=== PATIENT | female | born 1960 | race African-American/Black ===

== ENCOUNTER 2017-03-31 12:27 | Emergency (ER) | payer OTHER ==
[~2017-03-31] VITALS: Ht 170.2 cm; Wt 74.8 kg
[2017-03-31] MEDS ORDERED: LEVOTHYROXIN0.137 M1 PO (12:37)
[2017-03-31 13:00] LABS: HEMATOCRIT 31.8 % (37.0-47.0); HEMOGLOBIN 10.6 gm/dL (12.0-15.0); MCH 29.8 pg (26.0-34.0); MCHC 33.2 g/dL (28.0-37.0); MCV 89.6 fL (80.0-100.0); PLATELET COUNT 275 thou/uL (150-400); RBC 3.55 mil/uL (4.20-5.00); RDW 14.8 % (10.5-14.5); WBC 10.3 thou/uL (4.0-11.0)
[2017-03-31 13:01] LABS: MANUAL DIFF YES
[2017-03-31 13:13] LABS: ANION GAP 11 mmol/L (7-16); BUN 10 mg/dL (7-18); CALCIUM 8.3 mg/dL (8.5-10.1); CHLORIDE 106 mmol/L (98-107); CO2 24 mmol/L (21-32); CREATININE 0.7 mg/dL (0.6-1.0); GLUCOSE 98 mg/dL (74-106); SODIUM 141 mmol/L (136-145)
[2017-03-31 13:17] LABS: ALBUMIN 3.9 g/dL (3.4-5.0); ALKALINE PHOSPHATASE 59 U/L (46-116); DIRECT BILIRUBIN < 0.1 mg/dL (<0.1-0.3); SGOT 24 U/L (15-37); SGPT 25 U/L (30-65); TOTAL BILIRUBIN 0.3 mg/dL (<0.1-1.0); TOTAL PROTEIN 7.5 g/dL (6.4-8.2)
[2017-03-31 13:18] LABS: URINE BILIRUBIN NEGATIVE (Negative); URINE BLOOD NEGATIVE (Negative); URINE COLOR ORANGE; URINE GLUCOSE-RANDOM* NEGATIVE (Negative); URINE KETONES NEGATIVE (Negative); URINE NITRITE NEGATIVE (Negative); URINE PROTEIN (DIPSTICK) NEGATIVE (Negative); URINE SPECIFIC GRAVITY 1.015 (1.003-1.035); URINE UROBILINOGEN 0.2 E.U./dl (0.2-1.0)
[2017-03-31 13:24] LABS: ABSOLUTE NEUTROPHILS 6.6 thou/uL (1.4-8.2); TOTAL CELL COUNT 100
[2017-03-31] MEDS ORDERED: NORCO 5-325 TA1 EACH PO (14:42)
[2017-03-31 14:52] VITALS: BP 153/69
== END 2017-03-31 15:19 | disposition home or self-care (01) ==
LOC: ER 12:27
PROVIDERS: Nurse Practitioner
DX: K43.9 Ventral hernia without obstruction or gangrene (principal); F17.210 Nicotine dependence, cigarettes, uncomplicated